=== PATIENT | female | born 1975 | race Caucasian/White ===

== ENCOUNTER 2016-09-17 14:12 | Emergency (ER) | payer MEDICAID ==
[~2016-09-17] VITALS: Ht 157.5 cm; Wt 100.0 kg
[2016-09-17 14:16] VITALS: Ht 157.5 cm; Wt 100.0 kg
[2016-09-17] MEDS ORDERED: ONDANSETRON (ODT) 4 MG TAB ODT STA (15:01)
--- NOTE | 2016-09-17 15:07 | ERD ---
ER Documentation Chief Complaint Date/Time DATE: 09/17/16 TIME: 15:06 Chief Complaint intermittent ap with nausea x 2 days HPI This a 40-year-old female who presents to the emergency department today complaining of intermittent abdominal pain for the past 2 days. States she has had intermittent nausea as well. States she took Tylenol and had some improvement in pain within the pain returned. Denies any dysuria, fevers or chills. ROS All systems reviewed and are negative except as per history of present illness. Medications Home Meds Active Scripts Cephalexin* (Keflex*) 500 Mg Capsule, 500 MG PO QID for 7 Days, CAP Prov:HERNESTO MCCULLOUGH PA-C 09/17/16 Ondansetron Hcl* (Zofran*) 4 Mg Tablet, 4 MG PO Q6H for NAUSEA AND/OR VOMITING, #30 TAB Prov:HERNESTO MCCULLOUGHC 09/17/16 Ibuprofen* (Motrin*) 600 Mg Tab, 600 MG PO Q6, #30 TAB Prov:HERNESTO MCCULLOUGHC 09/17/16 Hydrocodone/Acetaminophen ([place] 5-325 Tablet) 1 Each Tablet, 1 TAB PO Q6H Y for PAIN, #15 TAB Prov:HERNESTO MCCULLOUGH PA-C 09/17/16 Allergies Allergies: Coded Allergies: No Known Allergy (Unverified , 11/10/14) PMhx/Soc Medical and Surgical Hx: pt denies Medical Hx, pt denies Surgical Hx Hx Alcohol Use: No Hx Substance Use: No Hx Tobacco Use: No Smoking Status: Never smoker Physical Exam Vitals Vital Signs Date Time Temp Pulse Resp B/P Pulse Ox O2 Delivery O2 Flow Rate FiO2 09/17/16 14:16 98.3 88 18 161/88 99 Physical Exam Const: Obese, no acute distress Head: Atraumatic Eyes: Normal Conjunctiva ENT: Normal External Ears, Nose and Mouth. Neck: Full range of motion..~ No meningismus. Resp: Clear to auscultation bilaterally Cardio: Regular rate and rhythm, no murmurs Abd: Soft, epigastric and right upper quadrant tenderness non distended. Normal bowel sounds. No right lower quadrant pain. No left lower quadrant pain. Skin: No petechiae or rashes Back: No midline or flank tenderness. No CVA tenderness. Ext: No cyanosis, or edema Neur: Awake and alert Psych: Normal Mood and Affect Result Diagram: 09/17/16 1535 09/17/16 1535 Results 24 hrs Laboratory Tests Test 09/17/16 15:35 White Blood Count 10.110^3/ul Red Blood Count 5.1410^6/ul Hemoglobin 13.9g/dl Hematocrit 41.7% Mean Corpuscular Volume 81.1fl Mean Corpuscular Hemoglobin 27.0pg Mean Corpuscular Hemoglobin Concent 33.3g/dl Red Cell Distribution Width 12.6% Platelet Count 27486^3/UL Mean Platelet Volume 10.1fl Neutrophils % 70.4% Lymphocytes % 22.9% Monocytes % 4.9% Eosinophils % 1.1% Basophils % 0.4% Nucleated Red Blood Cells % 0.0/100WBC Neutrophils # 7.110^3/ul Lymphocytes # 2.310^3/ul Monocytes # 0.510^3/ul Eosinophils # 0.110^3/ul Basophils # 0.010^3/ul Nucleated Red Blood Cells # 0.010^3/ul Urine Color YELLOW Urine Clarity CLOUDY Urine pH 5.5 Urine Specific [place] >=1.030 Urine Ketones NEGATIVE Urine Nitrite POSITIVE Urine Bilirubin 1+ Urine Ictotest NEGATIVE Urine Urobilinogen 0.2 E.U./dL Urine Leukocyte Esterase NEGATIVE Urine Microscopic RBC 5-10/HPF Urine Microscopic WBC 25-50/HPF Urine Squamous Epithelial Cells MANY Urine Bacteria MANY Urine Hemoglobin 2+ Urine Glucose 0.25%% Urine Total Protein 4+ Sodium Level 136mmol/L Potassium Level 4.2mmol/L Chloride Level 100mmol/L Carbon Dioxide Level 29mmol/L Anion Gap 11 Blood Urea Nitrogen 10mg/dl Creatinine 0.60mg/dl Glucose Level 282mg/dl Calcium Level 9.4mg/dl Total Bilirubin 0.1mg/dl Direct Bilirubin 0.00mg/dl Indirect Bilirubin 0.1mg/dl Aspartate Amino Transf (AST/SGOT) 14IU/L Alanine Aminotransferase (ALT/SGPT) 26IU/L Alkaline Phosphatase 124IU/L Total Protein 8.0g/dl Albumin 3.9g/dl Globulin 4.10g/dl Albumin/Globulin Ratio 0.95 Lipase 30U/L Current Medications Medications (Trade) Dose Ordered Sig/Jewell Route PRN Reason Start Time Stop Time Status Last Admin Dose Admin Famotidine (Pepcid) 20 mg ONCE ONCE PO 09/17/16 15:30 09/17/16 15:31 DC 09/17/16 15:13 Ondansetron HCl (Zofran Odt) 4 mg ONCE STAT ODT 09/17/16 15:01 09/17/16 15:03 DC 09/17/16 15:13 Acetaminophen/ Hydrocodone Bitart ([place] (5/325)) 1 tab ONCE ONCE PO 09/17/16 15:30 09/17/16 15:31 DC 09/17/16 15:13 DIAGNOSTIC IMAGING REPORT Patient: TRUDY PELAEZ : 1975 Age: 40 Sex: F MR #: [id number] DOS: 09/17/16 1501 Ordering MD: HERNESTO MCCULLOUGH PA-C Location: [facility] Room/Bed: PROCEDURE: Right upper quadrant ultrasound CLINICAL INDICATION: Abdominal pain TECHNIQUE: Multiple real-time images were acquired of the patient's abdomen and right retroperitoneum utilizing a high resolution transducer. COMPARISON: None FINDINGS: The liver is normal in echogenicity and measures 20.8 x cm. No focal hepatic masses are seen. The gallbladder is physiologically distended. There are multiple small gallstones. There is no gallbladder wall thickening or pericholecystic fluid. The intra and extrahepatic bile ducts are normal in caliber. The common bile duct measures 2.8 mm. Midline images demonstrate the pancreas head to be normal in echogenicity without obvious inflammatory change. The body and tail is suboptimally seen. Survey views of the right kidney demonstrate no evidence of hydronephrosis or renal calculi. The right kidney measures 10.6 cm. IMPRESSION: 1. Cholelithiasis. No gallbladder wall thickening or pericholecystic fluid. 2. No biliary duct dilatation. 3. Hepatomegaly. 4. Pancreas partially seen RPTAT: HH .Tommy Franco MD, Date Time Electronically viewed and signed by .Tommy Franco MD, on 09/17/2016 16:30 .W/ CC: HERNESTO MCCULLOUGH PA-C Procedures/[facility] This is a 40-year-old female who presents to the emergency department today complaining of abdominal pain and nausea that is been intermittent for the past 2 days. On physical exam patient had epigastric and right upper quadrant tenderness. I did obtain laboratory work as well as a right upper quadrant ultrasound. Laboratory work shows no elevated white blood cell count. She is not anemic. Platelets are within normal limits. Electrolytes are within normal limits. Glucose is elevated 282. Bilirubin is within normal limits. Liver function is larger than the month. Lipase within normal limits. UA is positive for nitrites. Patient also does have glucose in her urine. Urine test is negative Right upper quadrant ultrasound shows gallstones there is no gallbladder wall thickening or pericholecystic fluid. There is no biliary duct dilatation. She has hepatomegaly. Patient symptoms at this time most consistent with gallstones and biliary colic and urinary tract infection. Patient has no lower abdominal pain of low suspicion for acute surgical abdomen at this time. She was given [place], Zofran and Pepcid here in the emergency department. She will be given a prescription for home as well as Keflex for the urinary tract infection. Patient was instructed to follow-up about her hyperglycemia. At this time the patient is stable for discharge and outpatient management. Patient should follow up with their PCP in the next 1-2 days. They may return to the emergency department sooner for any persistent or worsening of symptoms. Patient understood and agreed with the plan. Departure Diagnosis: Primary Impression: Gallstones Additional Impression: UTI (urinary tract infection) Urinary tract infection type: site unspecified Hematuria presence: without hematuria Qualified Code: N39.0 - Urinary tract infection without hematuria, site unspecified Condition: Fair HERNESTO MCCULLOUGH PA-C Sep 17, 2016 15:06
[2016-09-17] MEDS ORDERED: HYDROCODONE/APAP (5/325) TAB PO ONE (15:30)
[2016-09-17] MEDS ORDERED: FAMOTIDINE 20 MG TAB PO ONE (15:30)
[2016-09-17 15:42] LABS: ADD SCAN DIFF NO
[2016-09-17 15:45] LABS: BASOPHILS % 0.4 % (0.0-2.0); EOSINOPHILS # 0.1 10^3/ul (0.0-0.5); EOSINOPHILS % 1.1 % (0.0-7.0); HEMATOCRIT 41.7 % (37.0-47.0); HEMOGLOBIN 13.9 g/dl (12.0-16.0); LYMPHOCYTES # 2.3 10^3/ul (0.8-2.9); LYMPHOCYTES % 22.9 % (15.0-51.0); MEAN CORPUSCULAR HGB CONC 33.3 g/dl (32.0-37.0); MEAN CORPUSCULAR VOLUME 81.1 fl (82.0-101.0); MEAN PLATELET VOLUME 10.1 fl (7.4-10.4); MONOCYTE # 0.5 10^3/ul (0.3-0.9); MONOCYTES % 4.9 % (0.0-11.0); NEUTROPHIL # 7.1 10^3/ul (1.6-7.5); NEUTROPHILS % 70.4 % (39.0-77.0); PLATELET COUNT 368 10^3/UL (140-415); RED BLOOD COUNT 5.14 10^6/ul (4.20-5.40); RED CELL DISTRIBUTION WIDTH 12.6 % (11.5-14.5); WHITE BLOOD COUNT 10.1 10^3/ul (4.8-10.8)
[2016-09-17 15:48] LABS: ADD UMIC YES; URINE BILIRUBIN (Dip) 1+ (NEGATIVE); URINE BLOOD (Dip) 2+ (NEGATIVE); URINE COLOR YELLOW (YELLOW); URINE KETONES (Dip) NEGATIVE (NEGATIVE); URINE LEUKOCYTE ESTERASE (Dip) NEGATIVE (NEGATIVE); URINE NITRITE (Dip) POSITIVE (NEGATIVE); URINE TOTAL PROTEIN (Dip) 4+ (NEGATIVE); URINE UROBILINOGEN (Dip) 0.2 E.U./dL (0.1-1.0)
[2016-09-17 15:57] LABS: ALBUMIN 3.9 g/dl (3.3-4.9); ALBUMIN/GLOBULIN RATIO 0.95; BILIRUBIN,INDIRECT 0.1 mg/dl (0-1.1); BILIRUBIN,TOTAL 0.1 mg/dl (0.2-1.3); CALCIUM 9.4 mg/dl (8.4-10.2); CREATININE 0.6 mg/dl (0.44-1.00); POTASSIUM 4.2 mmol/L (3.5-5.1)
[2016-09-17 16:11] LABS: BACTERIA,URINE MANY; SQUAMOUS EPITHELIAL CELL,UR MANY
--- NOTE | 2016-09-17 16:30 | RADRPT ---
PROCEDURE: Right upper quadrant ultrasound CLINICAL INDICATION: Abdominal pain TECHNIQUE: Multiple real-time images were acquired of the patient's abdomen and right retroperiton eum utilizing a high resolution transducer. COMPARISON: None FINDINGS: The liver is normal in echogenicity and measures 20.8 x cm. No focal hepatic masses are seen. The gallbladder is physiologically distended. There are multiple small gallstones. There is no gallblad petty wall thickening or pericholecystic fluid. The intra and extrahepatic bile ducts are normal in c aliber. The common bile duct measures 2.8 mm. Midline images demonstrate the pancreas head to be normal in echogenicity without obvious inflammato ry change. The body and tail is suboptimally seen. Survey views of the right kidney demonstrate no evidence of hydronephrosis or renal calculi. The ri ght kidney measures 10.6 cm. IMPRESSION: 1. Cholelithiasis. No gallbladder wall thickening or pericholecystic fluid. 2. No biliary duct dilatation. 3. Hepatomegaly. 4. Pancreas partially seen RPTAT: HH .Tommy Franco MD, Date Time Electronically viewed and signed by .Tommy Franco MD, on 09/17/2016 16:30 .W/
[2016-09-17 16:31] LABS: ICTOTEST NEGATIVE (NEGATIVE)
[2016-09-17] MEDS ORDERED: ONDA4TAB8 PO (16:53)
[2016-09-17] MEDS ORDERED: IBUP-1542 PO (16:53)
[2016-09-17] MEDS ORDERED: CEPH-443 PO (16:53)
[2016-09-17] MEDS ORDERED: HYDR-906 PO (16:53)
[2016-09-17 17:08] VITALS: BP 154/75; PULSE 87; RESP 16; TEMP 98
== END 2016-09-17 17:09 | disposition home or self-care (01) ==
LOC: FTE 14:12
DX: K80.20 Calculus of gallbladder without cholecystitis without obstruction (principal); N39.0 Urinary tract infection, site not specified; R11.0 Nausea
CPT/HCPCS: 76705; 80053; 81001; 83690; 85025; Z7610; 81003